=== PATIENT | male | born 2000 | race Caucasian/White ===

== ENCOUNTER 2022-12-09 01:05 | Emergency (ER) | payer OTHER, SELFPAY ==
[2022-12-09 01:08] VITALS: BP 151/73; PULSE 135; RESP 23; TEMP 36.4; O2SAT 98
[2022-12-09] MEDS: SODIUM CHLORIDE 0.9% IV 1,000 ML 999 ML IV CONT (02:07)
--- NOTE | 2022-12-09 02:16 | ED.GENADULT ---
HPI - General Adult General Chief complaint: Alcohol Stated complaint: etoh Time Seen by Provider: 12/09/22 01:11 History of Present Illness HPI narrative: Patient is a 22-year-old gentleman who presents the emergency department with chief complaint of alcohol intoxication. Patient states that he was upset this evening because he has family members hospital patient denies suicidal or homicidal ideation reports that he [place] a fair amount the police were called the patient states that he wanted to just get to the hospital so he can be with his family members over at [facility]. Patient denies chest pain denies shortness of breath denies abdominal pain denies vomiting. Related Data Home Medications Medication Instructions Recorded Confirmed No Home Medications 03/30/19 03/30/19 Allergies Allergy/AdvReac Type Severity Reaction Status Date / Time codeine Allergy Mild vomiting Verified 03/30/19 12:42 Review of Systems Review of Systems: A 10 system review of systems was completed on the patient and is negative except for what is stated in the HPI. Nursing and ancillary documentation was reviewed. [facility] Surgical History Surgical History History of placement of ear tubes History of tonsillectomy and adenoidectomy Social History Social History Smoking status: Never smoker Living arrangements: with family Occupation/Education: student Exam Narrative: GENERAL: Well-appearing, well-nourished, and in no acute distress. HEAD: Normocephalic, atraumatic. EYES: PERRLA and EOMI. ENT: Nares clear, no rhinorrhea or epistaxis. Mucous membranes moist. NECK: Supple. CHEST: Clear to auscultation. No respiratory distress. HEART: Regular rate and rhythm. No murmur heard. Normal peripheral pulses. ABDOMEN: Soft, nontender, nondistended, normal active bowel sounds. EXTREMITIES: Normal range of motion. No edema. SKIN: Warm, dry, no rash. NEURO: No focal deficits. Alert and oriented x3. PSYCH: Normal mood and affect. Course Vital Signs Vital signs: Vital Signs Temperature 36.4 C 12/09/22 01:08 Pulse Rate 135 H 12/09/22 01:08 Respiratory Rate 23 H 12/09/22 01:08 Blood Pressure 151/73 H 12/09/22 01:08 Pulse Oximetry 98 12/09/22 01:08 Oxygen Delivery Room Air 12/09/22 01:08 Temperature 36.4 C 12/09/22 01:08 Pulse Rate 135 H 12/09/22 01:08 Respiratory Rate 23 H 12/09/22 01:08 Blood Pressure 151/73 H 12/09/22 01:08 Pulse Oximetry 98 12/09/22 01:08 Oxygen Delivery Room Air 12/09/22 01:08 Medical Decision Making MDM Narrative Medical decision making narrative: Differential diagnosis includes acute alcohol intoxication substance abuse, Laboratory studies were obtained and the patient which showed a blood alcohol level of 235. Patient is awake and alert protecting his airway and has a sober ride to be able to take him home and they are willing to take custody of the patient Vital Signs Vital Signs: Vital Signs Temperature 36.4 C 12/09/22 01:08 Pulse Rate 135 H 12/09/22 01:08 Respiratory Rate 23 H 12/09/22 01:08 Blood Pressure 151/73 H 12/09/22 01:08 Pulse Oximetry 98 12/09/22 01:08 Oxygen Delivery Room Air 12/09/22 01:08 Temperature 36.4 C 12/09/22 01:08 Pulse Rate 135 H 12/09/22 01:08 Respiratory Rate 23 H 12/09/22 01:08 Blood Pressure 151/73 H 12/09/22 01:08 Pulse Oximetry 98 12/09/22 01:08 Oxygen Delivery Room Air 12/09/22 01:08 Lab Data 12/09/22 02:08 12/09/22 02:08 Labs: Lab Results 12/09/22 Range/Units 02:08 WBC 8.6 (4.5-10.0) K/mm3 RBC 5.24 (4.6-6.20) M/mm3 Hgb 15.8 (14.0-18.0) g/dL Hct 44.4 (42.0-52.0) % MCV 84.7 (80-100) fl MCH 30.2 (26-34) pg MCHC 35.6 (32-36) g/dl RDW 11.9 (11.5-14.5) % Plt Count 253 (15
[2022-12-09 02:17] LABS: Basophils Percent Auto 0.4 % (0.2-1.2); Eosinophils Percent Auto 0.1 % (0-4.4); Hematocrit 44.4 % (42.0-52.0); Hemoglobin 15.8 g/dL (14.0-18.0); Immature Granulocyte Absolute 0.03 K/mm3 (0.00-0.031); Immature Granulocyte Percent A 0.4 % (0-0.5); Lymphocytes Absolute Auto 1.76 K/mm3 (0.9-3.2); Lymphocytes Percent Auto 20.6 % (18.3-44.2); Mean Corpuscular HGB Conc 35.6 g/dl (32-36); Mean Corpuscular Hemoglobin 30.2 pg (26-34); Mean Corpuscular Volume 84.7 fl (80-100); Mean Platelet Volume 10.3 fl (7.4-10.4); Monocytes Absolute Auto 0.3 K/mm3 (0.1-0.6); Monocytes Percent Auto 3.9 % (2.6-8.5); Neutrophils Absolute Auto 6.4 K/mm3 (1.3-6.7); Neutrophils Percent Auto 74.6 % (45.5-73.1); Platelet Count Result 253 k/mm3 (150-375); Red Blood Count 5.24 M/mm3 (4.6-6.20); Red Cell Distribution Width 11.9 % (11.5-14.5); White Blood Count 8.6 K/mm3 (4.5-10.0)
[2022-12-09 02:26] LABS: Ethanol 235 mg/dL (<10)
[2022-12-09 02:27] LABS: Alanine Aminotransferase 17 U/L (6-50); Albumin Level 4.7 g/dL (3.5-5.1); Alkaline Phosphatase 50 U/L (38-126); Anion Gap 10 mmol/L (8-16); Aspartate Amino Transferase 27 U/L (17-59); Bilirubin,Total 0.7 mg/dL (0.2-1.3); Blood Urea Nitrogen 11 mg/dL (9-20); Calcium 9.2 mg/dL (8.4-10.2); Carbon Dioxide 23 mmol/L (22-30); Chloride 106 mmol/L (98-107); Estimated CRCL calculation 103 ml/min; Estimated Glomerular Filt Rate > 60; Glucose 108 mg/dL (65-110); Potassium 3.6 mmol/L (3.4-5.0); Sodium 139 mmol/L (137-145)
[2022-12-09 03:13] VITALS: BP 128/90; PULSE 96; RESP 18; TEMP 36.8; O2SAT 96
--- NOTE | 2022-12-09 03:14 | PC.NURSE ---
Per EDP Dr. Burton patient is ok to leave ED with parent at bedside.
== END 2022-12-09 03:15 | disposition home or self-care (01) ==
PROVIDERS: Emergency Provider Emergency Medicine
DX: F10.129 Alcohol abuse with intoxication, unspecified (principal); Y90.7 Blood alcohol level of 200-239 mg/100 ml
CPT/HCPCS: 36415; 80053; 80307; 85025; 99283; J7030